=== PATIENT | female | born 1950 | race Caucasian/White ===

== ENCOUNTER 2023-03-14 11:46 | Outpatient (CLI) | payer MEDICARE, BC | END 2023-03-14 11:47 | disposition home or self-care (01) | LOC: CSHRAD 11:46 | PROVIDERS: ATTEND Internal Medicine | DX: M54.50 Low back pain, unspecified (principal); S32.030A Wedge compression fracture of third lumbar vertebra, initial encounter for closed fracture; M47.816 Spondylosis without myelopathy or radiculopathy, lumbar region; N39.45 Continuous leakage | CPT/HCPCS: 72100; 81001; 87086 ==

== ENCOUNTER 2023-05-08 09:44 | Outpatient (CLI) | payer BC, MEDICARE ==
[2023-05-08] MEDS ORDERED: Iopamidol 300 61% 100 ML VIAL FS ONE (10:08)
== END 2023-05-08 09:45 | disposition home or self-care (01) ==
LOC: CSHCT 09:44
PROVIDERS: ATTEND Physician Assistant Medical
DX: R11.0 Nausea (principal); R63.4 Abnormal weight loss; R10.33 Periumbilical pain
CPT/HCPCS: 74177; 82565